=== PATIENT | male | born 1985 | race Caucasian/White ===

== ENCOUNTER 2025-02-16 08:18 | Emergency (ER) | payer BC, SELFPAY ==
[2025-02-16] VITALS (12 sets, daily range): BP systolic 144–158; BP diastolic 90–100; PULSE 64–82; TEMP 36.5; O2SAT 94–100; BMI 34.0
--- NOTE | 2025-02-16 08:46 | XR_ITS ---
[place] [id number] Patient Name: SLOANE CASTORENA MRN: [facility]:[id number] date: 1985 Sex: M Assigned Patient Location: ED.MAIN Current Patient Location: ED.MAIN Accession/Order Number: [id number] Exam Date: 02/16/2025 09:09 Report Date: 02/16/2025 09:09 At the request of: SERA MCKEON MD Procedure: XR chest 1V XR chest 1V 02/16/2025 9:06 AM SIGNS AND SYMPTOMS: ^cp PROTOCOL: Frontal radiograph of the chest COMPARISON: None FINDINGS: The trachea is midline. The heart and mediastinal structures are within normal limits. The lung parenchyma is clear. The bony thorax is intact. XR/XR chest 1V IMPRESSION: No acute cardiopulmonary pathology. Impression dictated by: Talat Stanley M.D. 02/16/2025 9:09 AM Dictation Location: [place] [address] Electronically authenticated by: [id number] Y Date: 02/16/2025 09:09
--- NOTE | 2025-02-16 08:46 | ECG_ITS ---
[facility] Test Date: 2025-02-16 Pat Name: SLOANE CASTORENA Department: Room: - Gender: Male Director Cardiology: : 1985 Requested By: [id number] Order Number: [id number] Reading MD: JONAH MOSQUEDA M.D. Measurements Intervals Reading Rate: 70 P: 32 MD: 150 QRS: 19 QRSD: 84 T: -13 QT: 402 QTc: 422 Interpretive Statements 1100 Sinus rhythm 9110 normal ECG No previous ECG available for comparison Electronically Signed On 02-17-2025 6:50:14 EDT by JONAH MOSQUEDA M.D.
[2025-02-16 09:03] LABS: Hematocrit 41.6 % (42.0-54.0); Hemoglobin 15.2 g/dL (14.0-18.0); Mean Corpuscular HGB Conc 36.5 g/dL (29.9-35.2); Mean Corpuscular Hemoglobin 33.5 pg (25.9-34.0); Mean Corpuscular Volume 91.6 fL (80.0-94.0); Platelet Count 148 10^3/uL (150-450); Red Blood Count 4.54 10^6/uL (4.70-6.10); White Blood Count 5.1 10^3/uL (4.0-11.0)
[2025-02-16] MEDS: KETOROLAC TROMETHAMINE 30 MG/ML VIAL 15 MG IVP (09:04)
[2025-02-16 09:28] LABS: Alanine Aminotransferase 65 U/L (16-63); Albumin Globulin Ratio 1.1; Albumin Level 4.1 g/dL (3.4-5.0); Alkaline Phosphatase 104 U/L (46-116); Anion Gap 16.3; Aspartate Amino Transferase 44 U/L (15-37); Blood Urea Nitrogen 12.0 mg/dL (7.0-18.0); Calcium 9.3 mg/dL (8.5-10.1); Carbon Dioxide 23.8 mmol/L (21.0-32.0); Chloride 102 mmol/L (98-107); Estimated GFR (African America >60 (>=60 mL/min/1.73m^2); Estimated GFR (Non-African Ame >60 (>=60 mL/min/1.73m^2); Globulin 3.8 g/dL; Glucose 106 mg/dL (74-106); Potassium 4.1 mmol/L (3.5-5.1); Sodium 138 mmol/L (136-145); Total Protein 7.9 g/dL (6.4-8.2)
[2025-02-16 09:29] LABS: Lymphocytes Absolute Manual 0.51 10^3/uL (1.20-3.80); Lymphocytes Percent Manual 10.0 % (20.5-60.0); Monocytes Absolute Manual 0.20 10^3/uL (0.30-0.80); Monocytes Percent Manual 4.0 % (1.7-12.0); Segmented Neut Absolute Manual 3.97 10^3/uL (1.4-6.5); Segmented Neutrophils % Manual 78.0 (43.0-75.0)
[2025-02-16 09:30] LABS: Atypical Lymphocytes % Manual 5.0 %; Atypical Lymphocytes Abs Man 0.25; Basophils Abs Manual 0.00 10^3/uL (0.00-0.10); Basophils Percent Manual 0.0 % (0.2-2.0); Eosinophils Absolute Manual 0.15 10^3/uL (0.00-0.70); Eosinophils Percent Manual 3.0 % (0.9-7.0)
--- NOTE | 2025-02-16 09:53 | US_ITS ---
The [address] [address] Patient Name: SLOANE CASTORENA MRN: [facility]:[id number] date: 1985 Sex: M Assigned Patient Location: ER Current Patient Location: ER Accession/Order Number: [id number] Exam Date: 02/16/2025 10:35 Report Date: 02/16/2025 10:40 At the request of: SERA MCKEON MD Procedure: US right upper quadrant EXAMINATION TYPE: US right upper quadrant DATE OF EXAM ORDERED: 02/16/2025 10:24 AM HISTORY: pain and elevated liver enzymes COMPARISON: NONE TECHNIQUE: Realtime imaging limited to the right upper quadrant was performed. FINDINGS: The gallbladder appears within normal limits without evidence of cholelithiasis. The gallbladder wall measures 2 mm in thickness. Common bile but measures 3 mm in diameter. No intrahepatic or extrahepatic biliary dilatation is seen. The liver is echogenic in respect to the right renal cortex suggesting hepatic steatosis. There is focal fatty sparing in the gallbladder fossa. There is hepatopedal flow the main portal vein. Partial visualization of the right kidney reveals no gross hydronephrosis. Partial visualization of the pancreas reveals no abnormality. US/US right upper quadrant IMPRESSION: No sonographic evidence of acute cholecystitis. Findings are consistent with hepatic steatosis. Impression dictated by: Talat Stanley M.D. 02/16/2025 10:40 AM Dictation Location: [place] [address] Electronically authenticated by: [id number] Y Date: 02/16/2025 10:40
--- NOTE | 2025-02-16 10:50 | ED.CHESTPAI1 ---
HPI - Chest Pain General Chief Complaint: Chest Pain Stated Complaint: R RIB PAIN Time Seen by Provider: 02/16/25 08:39 Source: patient Mode of arrival: walk-in History of Present Illness HPI narrative: The patient presented to us with a right just below the rib cage pain that he noticed over the last few hours. The patient mentioned that he does drink alcohol but he does not smoke cigarettes, he usually drink alcohol on a daily basis The patient denies nausea or vomiting he also denies in any relation of the pain with movement but he said that it is fixed in the right side No sweating no shortness of breath no coughing no other complaints Related Data Previous Rx's ?Medication ?Instructions ?Recorded meloxicam 15 mg tablet 15 mg PO DAILY PRN pain #10 tabs 02/16/25 Allergies Allergy/AdvReac Type Severity Reaction Status Date / Time codeine Allergy shortness Verified 02/16/25 08:24 of breath Review of Systems ROS Status of ROS 10 or more systems reviewed and unremarkable except as noted in history and below PFSH PFSH Social History Little interest or pleasure in doing things: not at all Feeling down, depressed, or hopeless: not at all Exam Narrative Exam Narrative: Nurses notes and vital signs reviewed and patient is not hypoxic. General: Well-appearing and in no apparent distress. Skin: Warm, dry, no pallor noted. No rash. Head: Normocephalic, atraumatic. Neck: Supple, non-tender. Eye: Pupils are equal, round and EOMI. No scleral icterus. Ears, Nose, Mouth, and Throat: TM are clear, no nasal mucosal hypertrophy. Oral mucosa is moist, no posterior oropharynx erythema, uvula is mid-line Cardiovascular: Regular Rate and Rhythm without murmur, gallop or rub. Respiratory: No accessory muscle use or respiratory distress. Lungs are clear to auscultation, no wheezing, rales or rhonchi Chest Wall: no tenderness but the patient is pointing just below the right rib cage pain Back: No midline thoracic or lumbar vertebral tenderness. No CVA tenderness Musculoskeletal: normal ROM, no calf or popliteal tenderness, no lower extremity edema/swelling GI: Abdomen is soft, non-distended. Normal bowel sounds. The patient had obesity that is noted and there is tenderness on palpation of the anterior axillary line just below the rib cage Neurological: A&O x4. No cranial nerve dysfunction observed. No truncal ataxia. Moves all extremities. Sensation intact. Psychiatric: Cooperative and interactive. Normal mood and affect. Constitutional Vital Signs, click to edit/add: Last Vital Signs Temp 97.7 F 02/16/25 08:24 Pulse 66 02/16/25 10:00 Resp 21 H 02/16/25 10:00 BP 158/93 H 02/16/25 09:30 Pulse Ox 98 02/16/25 10:00 O2 Del Method Room Air 02/16/25 08:24 Course Vital Signs Vital signs: Vital Signs Temperature 97.7 F 02/16/25 08:24 Pulse Rate 68 02/16/25 08:24 Respiratory Rate 18 02/16/25 08:24 Blood Pressure 150/100 H 02/16/25 08:24 Pulse Oximetry 98 02/16/25 08:24 Oxygen Delivery Method Room Air 02/16/25 08:24 Temperature 97.7 F 02/16/25 08:24 Pulse Rate 66 02/16/25 10:00 Respiratory Rate 21 H 02/16/25 10:00 Blood Pressure 158/93 H 02/16/25 09:30 Pulse Oximetry 98 02/16/25 10:00 Oxygen Delivery Method Room Air 02/16/25 08:24 MDM - Chest Pain MDM Narrative Medical decision making narrative: The patient EKG showing sinus rhythm with a heart rate of [address] elevation or depression there was noted T wave inversion in lead V2 and aVF The patient troponin was repeated twice because of his EKG changes but he does not have any cardiac presentation at the moment CBC and chemistry showed no acute pathology except for some elevation of the LFTs in the bilirubin that while we obtain the ultrasound of the liver that showed that the patient have hepatic steatosis Right now the patient was instructed about decreasing alcohol intake in addition to hydration and supportive care for pain with NSAID The patient was instructed about the importance of follow-up with a primary care for further evaluation of his cholesterol and his weight gain and to establish a plan for management The patient is to follow up with primary care physician in next 2-3 days or to return to the emergency department should any of the signs or symptoms worsen or new symptoms develop. The patient agrees with the following Diagnosis and Treatment plan and the patient will be discharged home. Lab Data Labs: Lab Results 02/16/25 02/16/25 Range/Units 08:55 10:13 WBC 5.1 (4.0-11.0) 10^3/uL RBC 4.54 L (4.70-6.10) 10^6/uL Hgb 15.2 (14.0-18.0) g/dL Hct 41.6 L (42.0-54.0) % MCV 91.6 (80.0-94.0) fL MCH 33.5 (25.9-34.0) pg MCHC 36.5 H (29.9-35.2) g/dL RDW 11.8 (11.0-15.0) % Plt Count 148 L (150-450) 10^3/uL MPV 9.5 (9.5-13.5) fL Seg Neuts % (Manual) 78.0 H (43.0-75.0) Lymphocytes % (Manual) 10.0 L (20.5-60.0) % Atypical Lymphs % (Man) 5.0 % Monocytes % (Manual) 4.0 (1.7-12.0) % Eosinophils % (Manual) 3.0 (0.9-7.0) % Basophils % (Manual) 0.0 L (0.2-2.0) % Neutrophils # (Manual) 3.97 (1.4-6.5) 10^3/uL Lymphocytes # (Manual) 0.51 L (1.20-3.80) 10^3/uL Abs Atypical Lymphs Man 0.25 Monocytes # (Manual) 0.20 L (0.30-0.80) 10^3/uL Eosinophils # (Manual) 0.15 (0.00-0.70) 10^3/uL Basophils # (Manual) 0.00 (0.00-0.10) 10^3/uL Sodium 138 (136-145) mmol/L Potassium 4.1 (3.5-5.1) mmol/L Chloride 102 (98-107) mmol/L Carbon Dioxide 23.8 (21.0-32.0) mmol/L Anion Gap 16.3 BUN 12.0 (7.0-18.0) mg/dL Creatinine 0.79 (0.70-1.30) mg/dL Est GFR ( Amer) >60 (>=60 mL/min/1.73m^2) Est GFR (Non-Af Amer) >60 (>=60 mL/min/1.73m^2) BUN/Creatinine Ratio 15.2 Glucose 106 (74-106) mg/dL Calcium 9.3 (8.5-10.1) mg/dL Total Bilirubin 1.6 H (0.2-1.0) mg/dL AST 44 H (15-37) U/L ALT 65 H (16-63) U/L Alkaline Phosphatase 104 (46-116) U/L Troponin I High Sens 7.0 6.2 (4.0-76.1) pg/mL Total Protein 7.9 (6.4-8.2) g/dL Albumin 4.1 (3.4-5.0) g/dL Globulin 3.8 g/dL Albumin/Globulin Ratio 1.1 Discharge Plan Discharge Chief Complaint: Chest Pain Clinical Impression: Alcohol induced fatty liver, Fatty liver Patient Disposition: Home, Self-Care Time of Disposition Decision: 10:49 Condition: Good Prescriptions / Home Meds: New meloxicam 15 mg tablet 15 mg PO DAILY PRN (Reason: pain) Qty: 10 0RF Print Language: Nigerian Instructions: Liver Disease Diet (DC), Non-Alcoholic Fatty Liver Disease (ED) Referrals: Tyler Hu DO [Primary Care Provider, Internal Medicine] - 1 week Discharge Date/Time: 02/16/25 11:03
== END 2025-02-16 11:03 | disposition home or self-care (01) ==
PROVIDERS: Emergency Provider Emergency Medicine; PCP Internal Medicine
DX: K70.0 Alcoholic fatty liver (principal)
CPT/HCPCS: 36415; 71045; 76705; 80053; 84484; 85007; 85027; 93005; 96374; 99285; J1885